=== PATIENT | male | born 1955 | race Caucasian/White ===

== ENCOUNTER 2024-04-05 09:36 | Day surgery (SDC) | payer OTHER ==
[2024-04-05] MEDS: Sodium Chloride 0.9% 1,000 ML IV SCH (09:57)
[2024-04-05] MEDS ORDERED: Midazolam 1 MG/ML 2 ML SDV ONE (11:06)
[2024-04-05] MEDS ORDERED: Propofol 200 MG/20 ML SDV ONE (11:06)
[2024-04-05] MEDS ORDERED: fentaNYL 50 MCG/ML SDV ONE (11:06)
== END 2024-04-05 13:40 | disposition home or self-care (01) ==
LOC: JP.SDS 09:36
PROVIDERS: ATTEND Surgery
DX: Z12.11 Encounter for screening for malignant neoplasm of colon (principal); K57.30 Diverticulosis of large intestine without perforation or abscess without bleeding; G47.33 Obstructive sleep apnea (adult) (pediatric)
CPT/HCPCS: 45378; J2250; J2704; J3010; J7030